=== PATIENT | male | born 1945 | race Caucasian/White ===

== ENCOUNTER 2025-01-19 18:02 | Inpatient (IN) | payer MEDICARE ==
[2025-01-19 18:56] LABS: CAUTI Indications for Culture Acute Hematuria; Glucose, Urine (Dipstick) Normal (Negative); Leukocyte 500 Leu/uL (Negative); Protein, Urine (Dipstick) 20 mg/dL (Neg-Trace); RBC/HPF 21-50 HPF (0-3); Specific Gravity, Urine 1.020 (1.002-1.036); WBC/HPF Greater than 50 HPF (0-3)
[2025-01-19 19:01] LABS: Bacteria/HPF 1+ HPF (None Seen); Urine Culture Reflex Yes Yes
[2025-01-19] MEDS ORDERED: cefTRIAXone (ROCEPHIN) 2 GM VIAL ONE (19:58)
[2025-01-19 20:31] LABS: #Basophils 0.04 10x3/uL (0.0-0.2); #Eosinophils 0.05 10x3/uL (0.0-0.7); #Monocytes 0.45 10x3/uL (0.11-0.59); #Neutrophils 13.35 10x3/uL (1.40-6.50); %Basophils 0.3 % (0.0-1.0); %Eosinophils 0.4 % (0.0-10.0); %Lymphocytes 2.0 % (21.0-51.0); %Monocytes 3.2 % (0.0-10.0); %Neutrophils 93.7 % (42.0-75.0); Hematocrit 34.5 % (42.0-52.0); Hemoglobin 11.4 g/dL (14.0-18.0); Mean Corpuscular Hemoglobin 28.5 pg (27.0-31.0); Mean Corpuscular Volume 86.3 fL (78.0-98.0); Platelet Count 283 10x3/uL (130-400); Red Blood Cell (RBC) Count 4.00 mill/uL (4.70-6.10); White Blood Cell (WBC) Count 14.22 10x3/uL (4.8-10.8)
[2025-01-19 20:50] LABS: ALT (SGPT) 28 U/L (Less than 45); AST (SGOT) 57 U/L (11-34); Albumin 2.9 g/dL (3.1-4.5); Alkaline Phosphatase 183 U/L (40-110); Anion Gap 19 mmol/L (10-20); BUN (Urea Nitrogen) 35 mg/dL (8.4-25.7); Bilirubin, Total 0.6 mg/dL (0.3-1.2); Calc. Creatinine Clearance 0 mL/min (70-130); Calcium 8.8 mg/dL (7.8-10.44); Carbon Dioxide 19 mmol/L (23-31); Chloride 103 mmol/L (98-107); Globulin 4.0 g/dL (2.4-3.5); Glucose 113 mg/dL (83-110); Potassium 4.1 mmol/L (3.5-5.1); Sodium 137 mmol/L (136-145)
[2025-01-19 20:54] LABS: Troponin I 0.013 ng/mL (< 0.028)
[2025-01-19] MEDS ORDERED: NOREPINEPHRINE 8 MG/250 ML-D5W 250 ML ONE (21:17)
[2025-01-19] MEDS ORDERED: Calcium Carbonate 500 MG ChewTAB PO PRN (21:45)
[2025-01-19] MEDS ORDERED: NOREPINEPHRINE 8 MG/250 ML-D5W 250 ML IVPB SCH (21:45)
[2025-01-19] MEDS ORDERED: Acetaminophen 325 MG TAB PO PRN (21:45)
[2025-01-19] MEDS ORDERED: Ondansetron PF 4 MG/2 ML Vial IVP PRN (21:45)
[2025-01-19] MEDS ORDERED: Senokot S 8.6-50 MG TAB PO PRN (21:45)
[2025-01-20] MEDS: VANCOMYCIN 2 GRAM/400 ML Premix BAG IVPB SCH (00:25)
[2025-01-20 00:50] VITALS: BMI 21.6
[2025-01-20 03:40] LABS: #Basophils 0.06 10x3/uL (0.0-0.2); #Eosinophils 0.03 10x3/uL (0.0-0.7); #Monocytes 0.79 10x3/uL (0.11-0.59); #Neutrophils 14.85 10x3/uL (1.40-6.50); %Basophils 0.4 % (0.0-1.0); %Eosinophils 0.2 % (0.0-10.0); %Lymphocytes 2.7 % (21.0-51.0); %Monocytes 4.9 % (0.0-10.0); %Neutrophils 91.3 % (42.0-75.0); Hematocrit 32.1 % (42.0-52.0); Hemoglobin 10.6 g/dL (14.0-18.0); Mean Corpuscular Hemoglobin 28.3 pg (27.0-31.0); Mean Corpuscular Volume 85.8 fL (78.0-98.0); Platelet Count 270 10x3/uL (130-400); Red Blood Cell (RBC) Count 3.74 mill/uL (4.70-6.10); White Blood Cell (WBC) Count 16.25 10x3/uL (4.8-10.8)
[2025-01-20 04:12] LABS: Vancomycin, Random 21.5 ug/mL (See Comment)
[2025-01-20 04:15] LABS: ALT (SGPT) 25 U/L (Less than 45); Albumin 2.7 g/dL (3.1-4.5); Alkaline Phosphatase 162 U/L (40-110); Anion Gap 13 mmol/L (10-20); BUN (Urea Nitrogen) 29 mg/dL (8.4-25.7); Bilirubin, Total 0.6 mg/dL (0.3-1.2); Calc. Creatinine Clearance 121 mL/min (70-130); Calcium 8.2 mg/dL (7.8-10.44); Carbon Dioxide 20 mmol/L (23-31); Chloride 107 mmol/L (98-107); Globulin 3.5 g/dL (2.4-3.5); Glucose 120 mg/dL (83-110); Magnesium 1.7 mg/dL (1.6-2.6); Potassium 3.5 mmol/L (3.5-5.1); Sodium 136 mmol/L (136-145)
[2025-01-20 04:26] LABS: AST (SGOT) 48 U/L (11-34)
[2025-01-20] MEDS ORDERED: Apixaban 5 MG TAB PO SCH (09:00)
[2025-01-20] MEDS: Vancomycin 1 GM in Premix 1 BAG IVPB SCH (10:26)
[2025-01-20 15:10] VITALS: BMI 21.6
[2025-01-20] MEDS: Vancomycin HCl 1.25 GM in Sodium Chloride 0.9% 250 ML 250 ML IVPB SCH (22:10)
[2025-01-22] MEDS: Apixaban 5 MG TAB PO SCH (20:50)
[2025-01-23 06:47] LABS: Vancomycin, Random 21.6 ug/mL (See Comment)
[2025-01-23 06:50] LABS: Calc. Creatinine Clearance 120.0 mL/min (70-130)
[2025-01-23 09:35] LABS: #Basophils 0.05 10x3/uL (0.0-0.2); #Eosinophils 0.46 10x3/uL (0.0-0.7); #Monocytes 0.45 10x3/uL (0.11-0.59); #Neutrophils 3.59 10x3/uL (1.40-6.50); %Basophils 0.8 % (0.0-1.0); %Eosinophils 7.7 % (0.0-10.0); %Lymphocytes 22.9 % (21.0-51.0); %Monocytes 7.5 % (0.0-10.0); %Neutrophils 60.1 % (42.0-75.0); Hematocrit 33.4 % (42.0-52.0); Hemoglobin 10.7 g/dL (14.0-18.0); Mean Corpuscular Hemoglobin 28.8 pg (27.0-31.0); Mean Corpuscular Volume 90.0 fL (78.0-98.0); Platelet Count 264 10x3/uL (130-400); Red Blood Cell (RBC) Count 3.71 mill/uL (4.70-6.10); White Blood Cell (WBC) Count 5.98 10x3/uL (4.8-10.8)
[2025-01-23] MEDS: Mupirocin 1 GM TUBE NASAL SCH (09:44)
[2025-01-23] MEDS: Vancomycin 1 GM in Premix 1 BAG IVPB SCH (20:13)
[2025-01-25 05:26] LABS: CK (CPK) 24.0 U/L (30-200); Calc. Creatinine Clearance 100.0 mL/min (70-130)
[2025-01-26 16:37] VITALS: BP 94/48; TEMP 97.9
== END 2025-01-26 17:59 | DRG 698 ==
LOC: SUATTDRO 18:02 → ERS 18:02 → CCU 21:17 → SURG A 01-20 12:22
PROVIDERS: ADMIT Internal Medicine; ATTEND Internal Medicine
PROC: 3E03329 Introduction of Other Anti-infective into Peripheral Vein, Percutaneous Approach (ICD-10-PCS; 2025-01-19)
PROC: 3E033XZ Introduction of Vasopressor into Peripheral Vein, Percutaneous Approach (ICD-10-PCS; 2025-01-19)
PROC: 0T9B70Z Drainage of Bladder with Drainage Device, Via Natural or Artificial Opening (ICD-10-PCS; 2025-01-20)
PROC: 05HF33Z Insertion of Infusion Device into Left Cephalic Vein, Percutaneous Approach (ICD-10-PCS; principal; 2025-01-24)
PROC: 3E04329 Introduction of Other Anti-infective into Central Vein, Percutaneous Approach (ICD-10-PCS; 2025-01-24)
PROC: 3E043XZ Introduction of Vasopressor into Central Vein, Percutaneous Approach (ICD-10-PCS; 2025-01-24)
DX: T83.511A Infection and inflammatory reaction due to indwelling urethral catheter, initial encounter (principal); A41.02 Sepsis due to Methicillin resistant Staphylococcus aureus; S34.105A Unspecified injury to L5 level of lumbar spinal cord, initial encounter; C41.2 Malignant neoplasm of vertebral column; I73.9 Peripheral vascular disease, unspecified; Z66 Do not resuscitate; N18.9 Chronic kidney disease, unspecified; R31.9 Hematuria, unspecified; L89.229 Pressure ulcer of left hip, unspecified stage; Z86.718 Personal history of other venous thrombosis and embolism
CPT/HCPCS: 36415; 51702; 71045; 80053; 80202; 81001; 82550; 82565; 83605; 83735; 84145; 84443; 84484; 85025; 87040; 87077; 87086; 87149; 87186; 93005; 93010; 96365; 96366; 96367; 96368; 97139; J0696; J0878; J2185; J3373; J3375; J7030; J7050

== ENCOUNTER 2025-05-08 16:26 | Inpatient (IN) | payer MEDICARE ==
[~2025-05-08 16:26] MED LIST: Iopamidol-370 76% 500 ML MDV (1 ML CHARGE) ONE
[2025-05-08 16:56] LABS: Hematocrit 23.3 % (42.0-52.0); Hemoglobin 7.5 g/dL (14.0-18.0); Mean Corpuscular Hemoglobin 29.2 pg (27.0-31.0); Mean Corpuscular Volume 90.7 fL (78.0-98.0); Platelet Count 223 10x3/uL (130-400); Red Blood Cell (RBC) Count 2.57 mill/uL (4.70-6.10); White Blood Cell (WBC) Count 5.95 10x3/uL (4.8-10.8)
[2025-05-08] MEDS ORDERED: Cefepime 2 GM VIAL ONE (16:56)
[2025-05-08 17:12] LABS: ALT (SGPT) 14 U/L (Less than 45); AST (SGOT) 44 U/L (11-34); Albumin 1.6 g/dL (3.1-4.5); Alkaline Phosphatase 78 U/L (40-110); Anion Gap 11 mmol/L (10-20); BUN (Urea Nitrogen) 27 mg/dL (8.4-25.7); Bilirubin, Total 0.5 mg/dL (0.3-1.2); Calc. Creatinine Clearance 0 mL/min (70-130); Calcium 7.2 mg/dL (7.8-10.44); Carbon Dioxide 18 mmol/L (23-31); Chloride 109 mmol/L (98-107); Globulin 3.0 g/dL (2.4-3.5); Glucose 110 mg/dL (83-110); Potassium 4.2 mmol/L (3.5-5.1); Sodium 134 mmol/L (136-145)
[2025-05-08 17:17] LABS: CAUTI Indications for Culture Alt mental st,lethar; Glucose, Urine (Dipstick) Normal (Negative); Leukocyte 500 Leu/uL (Negative); Protein, Urine (Dipstick) 30 mg/dL (Neg-Trace); RBC/HPF Greater than 50 HPF (0-3); Specific Gravity, Urine 1.021 (1.002-1.036); WBC/HPF Greater than 50 HPF (0-3)
[2025-05-08 17:18] LABS: Bacteria/HPF 1+ HPF (None Seen)
[2025-05-08 17:20] LABS: Urine Culture Reflex Yes Yes
[2025-05-08 17:35] LABS: Burr Cells SLIGHT = 2-5 cells HPF (0-1); Macrocytosis SLIGHT = 6-15 cells HPF (0-5); Ovalocytes SLIGHT = 2-5 cells HPF (0-1); Platelet Adequacy Comment Platelets Normal; Polychromasia SLIGHT = 2-3 cells HPF (0-2); Smudge Cells 19.2 %
[2025-05-08] MEDS: Vancomycin 1.5 GM / NS 500ML VIAL-2-BAG IVPB SCH (18:16)
[2025-05-08 18:31] LABS: Actual Bicarbonate (HCO3v) 20.3 mEq/L (22-28); Base Excess -2.3 mEq/L (-2.0 to +3.0); Calcium, Ionized (venous) 1.00 mmol/L (1.16-1.32); Chloride (VBG) 106 mmol/L (98-106); Hematocrit-VBG 24 % (42.0-52.0); Hemoglobin (Hb) 8.0 g/dL (12.6-17.4); Potassium (VBG) 3.53 mmol/L (3.70-5.30); Sodium 133 mmol/L (133-146)
[2025-05-08] MEDS ORDERED: Ondansetron PF 4 MG/2 ML Vial IVP PRN (21:28)
[2025-05-08] MEDS ORDERED: Acetaminophen 325 MG TAB PO PRN (21:28)
[2025-05-08] MEDS ORDERED: Calcium Carbonate 500 MG ChewTAB PO PRN (21:28)
[2025-05-08] MEDS ORDERED: Guaifenesin DM 100-10/5 ML UDCUP PO PRN (21:28)
[2025-05-08] MEDS ORDERED: Norepinephrine 8 MG/0.9% NS 0 ML ONE (21:41)
[2025-05-08] MEDS ORDERED: NOREPINEPHRINE 8 MG/250 ML-D5W 250 ML IVPB SCH (21:45)
[2025-05-08 23:22] LABS: Hematocrit 24.0 % (42.0-52.0); Hemoglobin 7.5 g/dL (14.0-18.0)
[2025-05-08 23:31] VITALS: BMI 25.0
[2025-05-08] MEDS: Albumin 25% 25 GM (100 mL) BOT IVPB SCH (23:53)
[2025-05-09] MEDS: Norepinephrine 8 MG/0.9% NS 250 ML IVPB SCH (03:38)
[2025-05-09 05:03] LABS: Hematocrit 23.0 % (42.0-52.0); Hemoglobin 7.4 g/dL (14.0-18.0); Mean Corpuscular Hemoglobin 29.5 pg (27.0-31.0); Mean Corpuscular Volume 91.6 fL (78.0-98.0); Platelet Count 211 10x3/uL (130-400); Red Blood Cell (RBC) Count 2.51 mill/uL (4.70-6.10); White Blood Cell (WBC) Count 4.81 10x3/uL (4.8-10.8)
[2025-05-09 05:16] LABS: Anion Gap 12 mmol/L (10-20); BUN (Urea Nitrogen) 21 mg/dL (8.4-25.7); Calc. Creatinine Clearance 140 mL/min (70-130); Calcium 7.4 mg/dL (7.8-10.44); Carbon Dioxide 21 mmol/L (23-31); Chloride 109 mmol/L (98-107); Glucose 92 mg/dL (83-110); Potassium 3.3 mmol/L (3.5-5.1); Sodium 139 mmol/L (136-145)
[2025-05-09 05:27] LABS: Anisocytosis SLIGHT = 6-15 cells HPF (0-5); Macrocytosis SLIGHT = 6-15 cells HPF (0-5); Platelet Adequacy Comment Platelets Normal; Polychromasia SLIGHT = 2-3 cells HPF (0-2); Smudge Cells 4.9 %
[2025-05-09] MEDS: Linezolid 600 MG in Premix 1 BAG IVPB SCH (06:38)
[2025-05-09] MEDS: Mupirocin 1 GM TUBE NASAL DECOLONIZATION NASAL SCH (08:44)
[2025-05-09] MEDS: Ferrous Sulfate 325 MG TAB PO SCH (08:44)
[2025-05-09] MEDS: Apixaban 5 MG TAB PO SCH (08:45)
[2025-05-09 08:59] VITALS: BMI 25.0
[2025-05-09] MEDS ORDERED: Magnesium 2 GM/50 ML(in water) 2 GM in Premix 1 BAG IVPB PRN (09:15)
[2025-05-09] MEDS ORDERED: PHOS-NAK 1 PKT PACK PO PRN (09:15)
[2025-05-09] MEDS ORDERED: Potassium Chloride 20 MEQ in Premix 1 BAG IVPB PRN (09:15)
[2025-05-09] MEDS: HYDROcodone/Acetaminophen 5/325 mg Tablet PO PRN (10:42)
[2025-05-09 16:34] LABS: Potassium 3.8 mmol/L (3.5-5.1)
[2025-05-10 04:11] LABS: Anion Gap 12 mmol/L (10-20); BUN (Urea Nitrogen) 23 mg/dL (8.4-25.7); Calc. Creatinine Clearance 112 mL/min (70-130); Calcium 7.8 mg/dL (7.8-10.44); Carbon Dioxide 20 mmol/L (23-31); Chloride 109 mmol/L (98-107); Glucose 103 mg/dL (83-110); Iron 20 ug/dL (65-175); Iron Binding Capacity, Total 78 mcg/dL (261-462); Potassium 3.8 mmol/L (3.5-5.1); Sodium 137 mmol/L (136-145)
[2025-05-10 04:14] LABS: Hematocrit 20.8 % (42.0-52.0); Hemoglobin 6.4 g/dL (14.0-18.0); Mean Corpuscular Hemoglobin 28.8 pg (27.0-31.0); Mean Corpuscular Volume 93.7 fL (78.0-98.0); Platelet Count 216 10x3/uL (130-400); Red Blood Cell (RBC) Count 2.22 mill/uL (4.70-6.10); White Blood Cell (WBC) Count 4.57 10x3/uL (4.8-10.8)
[2025-05-10 04:21] LABS: Burr Cells SLIGHT = 2-5 cells HPF (0-1); Platelet Adequacy Comment Platelets Normal; Polychromasia SLIGHT = 2-3 cells HPF (0-2); Smudge Cells 11.0 %
[2025-05-10] MEDS: Apixaban 2.5 MG TAB PO SCH (11:51)
[2025-05-11 04:37] LABS: Hematocrit 25.1 % (42.0-52.0); Hemoglobin 8.1 g/dL (14.0-18.0); Mean Corpuscular Hemoglobin 27.7 pg (27.0-31.0); Mean Corpuscular Volume 86.0 fL (78.0-98.0); Platelet Count 210 10x3/uL (130-400); Red Blood Cell (RBC) Count 2.92 mill/uL (4.70-6.10); White Blood Cell (WBC) Count 4.12 10x3/uL (4.8-10.8)
[2025-05-11 04:45] LABS: Anion Gap 13 mmol/L (10-20); BUN (Urea Nitrogen) 25 mg/dL (8.4-25.7); Calc. Creatinine Clearance 120 mL/min (70-130); Calcium 7.7 mg/dL (7.8-10.44); Carbon Dioxide 20 mmol/L (23-31); Chloride 107 mmol/L (98-107); Glucose 91 mg/dL (83-110); Potassium 3.8 mmol/L (3.5-5.1); Sodium 136 mmol/L (136-145)
[2025-05-11 05:53] LABS: Anisocytosis SLIGHT = 6-15 cells HPF (0-5); Burr Cells MODERATE= 6-15 cells HPF (0-1); Macrocytosis SLIGHT = 6-15 cells HPF (0-5); Ovalocytes SLIGHT = 2-5 cells HPF (0-1); Platelet Adequacy Comment Platelets Normal; Poikilocytosis SLIGHT = 6-15 cells HPF (0-5); Polychromasia SLIGHT = 2-3 cells HPF (0-2); Schistocytes SLIGHT = 2-5 cells HPF (0-1); Smudge Cells 14.3 %
[2025-05-11] MEDS: Vancomycin 1 GM in Sodium Chloride 0.9% 250 ML 250 ML IVPB SCH (14:19)
[2025-05-11] MEDS: VANCOMYCIN 1.75 GM/350 ML BAG 1.75 GM in Premix 1 BAG IVPB SCH (14:19)
[2025-05-11 16:36] LABS: ALT (SGPT) 21 U/L (Less than 45); AST (SGOT) 43 U/L (11-34); Albumin 2.2 g/dL (3.1-4.5); Alkaline Phosphatase 79 U/L (40-110); Bilirubin, Direct 0.2 mg/dL (0.1-0.3); Bilirubin, Total 0.5 mg/dL (0.3-1.2)
[2025-05-11] MEDS: Albumin 25% 25 GM (100 mL) BOT IVPB SCH (17:29)
[2025-05-12] MEDS: Vancomycin 1.25 GM / NS 250 ML VIAL-2-BAG IVPB SCH (00:12)
[2025-05-12 05:20] LABS: Hematocrit 23.0 % (42.0-52.0); Hemoglobin 7.5 g/dL (14.0-18.0); Mean Corpuscular Hemoglobin 28.0 pg (27.0-31.0); Mean Corpuscular Volume 85.8 fL (78.0-98.0); Platelet Count 203 10x3/uL (130-400); Red Blood Cell (RBC) Count 2.68 mill/uL (4.70-6.10); Vancomycin, Random 24.4 ug/mL (See Comment); White Blood Cell (WBC) Count 3.56 10x3/uL (4.8-10.8)
[2025-05-12 05:27] LABS: ALT (SGPT) 16 U/L (Less than 45); AST (SGOT) 28 U/L (11-34); Albumin 2.5 g/dL (3.1-4.5); Alkaline Phosphatase 64 U/L (40-110); Anion Gap 11 mmol/L (10-20); BUN (Urea Nitrogen) 28 mg/dL (8.4-25.7); Bilirubin, Total 0.8 mg/dL (0.3-1.2); Calc. Creatinine Clearance 125 mL/min (70-130); Calcium 8.0 mg/dL (7.8-10.44); Carbon Dioxide 23 mmol/L (23-31); Chloride 107 mmol/L (98-107); Globulin 2.4 g/dL (2.4-3.5); Glucose 90 mg/dL (83-110); Potassium 3.8 mmol/L (3.5-5.1); Sodium 137 mmol/L (136-145)
[2025-05-12 05:49] LABS: Anisocytosis SLIGHT = 6-15 cells HPF (0-5); Macrocytosis SLIGHT = 6-15 cells HPF (0-5); Platelet Adequacy Comment Platelets Normal; Polychromasia SLIGHT = 2-3 cells HPF (0-2)
[2025-05-13 06:35] LABS: Anion Gap 13 mmol/L (10-20); BUN (Urea Nitrogen) 27 mg/dL (8.4-25.7); Calc. Creatinine Clearance 125 mL/min (70-130); Calcium 7.9 mg/dL (7.8-10.44); Carbon Dioxide 23 mmol/L (23-31); Chloride 105 mmol/L (98-107); Glucose 90 mg/dL (83-110); Hematocrit 24.1 % (42.0-52.0); Hemoglobin 7.6 g/dL (14.0-18.0); Magnesium 1.9 mg/dL (1.6-2.6); Mean Corpuscular Hemoglobin 27.4 pg (27.0-31.0); Mean Corpuscular Volume 87.0 fL (78.0-98.0); Platelet Count 234 10x3/uL (130-400); Potassium 3.6 mmol/L (3.5-5.1); Red Blood Cell (RBC) Count 2.77 mill/uL (4.70-6.10); Sodium 137 mmol/L (136-145); White Blood Cell (WBC) Count 3.63 10x3/uL (4.8-10.8)
[2025-05-13 07:16] LABS: Platelet Adequacy Comment Platelets Normal; RBC Morphology Within Normal Limits; Smudge Cells 3.8 %
[2025-05-14 05:23] LABS: Calc. Creatinine Clearance 132.0 mL/min (70-130); Vancomycin, Random 24.9 ug/mL (See Comment)
[2025-05-14 11:22] LABS: Anion Gap 11 mmol/L (10-20); Carbon Dioxide 24 mmol/L (23-31); Chloride 105 mmol/L (98-107); Potassium 3.9 mmol/L (3.5-5.1); Sodium 136 mmol/L (136-145)
[2025-05-15 10:46] LABS: Anion Gap 13 mmol/L (10-20); Carbon Dioxide 24 mmol/L (23-31); Chloride 103 mmol/L (98-107); Potassium 4.0 mmol/L (3.5-5.1); Sodium 136 mmol/L (136-145)
[2025-05-16 04:55] LABS: Calc. Creatinine Clearance 138.0 mL/min (70-130)
[2025-05-16 09:57] LABS: #Basophils Less than 0.03 10x3/uL (0.0-0.2)
[2025-05-16 10:03] LABS: #Eosinophils 0.18 10x3/uL (0.0-0.7); #Monocytes 0.64 10x3/uL (0.11-0.59); #Neutrophils 1.81 10x3/uL (1.40-6.50); %Basophils 0.2 % (0.0-1.0); %Eosinophils 4.2 % (0.0-10.0); %Lymphocytes 37.0 % (21.0-51.0); %Monocytes 14.9 % (0.0-10.0); %Neutrophils 42.1 % (42.0-75.0); Hematocrit 24.6 % (42.0-52.0); Hemoglobin 7.5 g/dL (14.0-18.0); Mean Corpuscular Hemoglobin 27.4 pg (27.0-31.0); Mean Corpuscular Volume 89.8 fL (78.0-98.0); Platelet Count 288 10x3/uL (130-400); Red Blood Cell (RBC) Count 2.74 mill/uL (4.70-6.10); White Blood Cell (WBC) Count 4.30 10x3/uL (4.8-10.8)
[2025-05-16 11:14] LABS: Anion Gap 12 mmol/L (10-20); BUN (Urea Nitrogen) 27 mg/dL (8.4-25.7); Calc. Creatinine Clearance 138 mL/min (70-130); Calcium 8.0 mg/dL (7.8-10.44); Carbon Dioxide 25 mmol/L (23-31); Chloride 103 mmol/L (98-107); Glucose 103 mg/dL (83-110); Potassium 4.0 mmol/L (3.5-5.1); Sodium 136 mmol/L (136-145)
[2025-05-16 17:15] VITALS: BP 103/61; TEMP 97.8
== END 2025-05-16 19:17 | DRG 871 ==
LOC: ERS 16:26 → CCU 21:28 → MSONC 05-11 03:11
PROVIDERS: ADMIT Internal Medicine; ATTEND Family Medicine
PROC: 30233J1 Transfusion of Nonautologous Serum Albumin into Peripheral Vein, Percutaneous Approach (ICD-10-PCS; principal; 2025-05-09)
PROC: 3E03329 Introduction of Other Anti-infective into Peripheral Vein, Percutaneous Approach (ICD-10-PCS; 2025-05-09)
PROC: 3E033XZ Introduction of Vasopressor into Peripheral Vein, Percutaneous Approach (ICD-10-PCS; 2025-05-09)
PROC: 30233N1 Transfusion of Nonautologous Red Blood Cells into Peripheral Vein, Percutaneous Approach (ICD-10-PCS; 2025-05-10)
DX: A41.9 Sepsis, unspecified organism (principal); R65.21 Severe sepsis with septic shock; C41.4 Malignant neoplasm of pelvic bones, sacrum and coccyx; N13.6 Pyonephrosis; E87.1 Hypo-osmolality and hyponatremia; Z51.5 Encounter for palliative care; Z66 Do not resuscitate; N18.9 Chronic kidney disease, unspecified; R53.81 Other malaise; N13.9 Obstructive and reflux uropathy, unspecified; D63.1 Anemia in chronic kidney disease; E88.09 Other disorders of plasma-protein metabolism, not elsewhere classified; R91.1 Solitary pulmonary nodule; Z86.14 Personal history of Methicillin resistant Staphylococcus aureus infection; Z86.718 Personal history of other venous thrombosis and embolism; Z79.899 Other long term (current) drug therapy; Z93.6 Other artificial openings of urinary tract status; Z79.01 Long term (current) use of anticoagulants
CPT/HCPCS: 36415; 36416; 36430; 71275; 74177; 80048; 80051; 80053; 80076; 80202; 81001; 82565; 82728; 82805; 83540; 83550; 83605; 83735; 84100; 84484; 85025; 86850; 86870; 86900; 86901; 86922; 87040; 87086; 87149; 93005; 94760; 96365; 96366; 96367; 96374; 96376; 97139; J0692; J2020; J3010; J3373; J3375; J7030; J7050; J7120; P9016; P9047; Q9967

== ENCOUNTER 2025-06-09 18:32 | Emergency (ER) | payer MEDICARE | END 2025-06-09 21:51 | disposition home or self-care (01) | LOC: ERS 18:32 | DX: N30.90 Cystitis, unspecified without hematuria (principal) | CPT/HCPCS: 74176 ==